=== PATIENT | female | born 1950 | race Caucasian/White ===

== ENCOUNTER → 2017-05-03 | Day surgery (SDC) | payer BC ==
[~2017-05-03] MED LIST: DILT180C64 PO; IV RINGERS,LACTATED 1000ML 1,000 ML IV SCH; MULT1TAB52 PO; PROPOFOL 60 ML IV ONE
[2017-05-03 10:35] VITALS: BP 129/71
--- NOTE | 2017-05-04 14:30 | PATHOLOGY ---
PATHOLOGY REPORT * * * * * * * * FINAL DIAGNOSIS: A. Small bowel biopsy: - No significant pathologic abnormalities. B. Gastric biopsy, antrum: - Congestion and slight chronic inflammation. C. Esophageal biopsy, distal esophagus: - Segments of hyperplastic squamous esophageal mucosa and esophagogastric mucosa showing active chronic inflammation, consistent with reflux esophagitis. D. Terminal ileum biopsy: - Segments of small intestine mucosa with focal contiguous colonic mucosa showing no significant pathologic abnormalities, with mucosal associated lymphoid tissue. E. Colonic mucosa, right colon biopsies: - Collagenous colitis. F. Colonic mucosa, left colon biopsies: - Collagenous colitis. COMMENT: Sections of the small bowel biopsy reveal segments of duodenal and small intestine mucosa. Where best oriented, the mucosal villi appear normal. There are no sprue-like changes or significant inflammatory changes. Sections of the gastric biopsy reveal gastric body and antral/body transition mucosa showing congestion and slight chronic inflammation. An immunoperoxidase stain for Helicobacter is obtained. No Helicobacter organisms are identified. Sections of the distal esophageal biopsy reveal segments of hyperplastic squamous esophageal mucosa and esophagogastric mucosa showing mild to moderate active chronic inflammation. The findings are consistent with reflux. There is no evidence of Teresa's change, dysplasia, or malignancy. Sections of the terminal ileum biopsy reveal segments of small intestine mucosa with focal contiguous colonic mucosa showing mucosal associated lymphoid tissue. There are no sprue-like changes or significant inflammatory changes. Sections of the right colon and left colon biopsies show a mild chronic active colitis without crypt architectural distortion. There is collagen deposited around the absorptive capillary complex beneath the surface epithelium. The findings are compatible with collagenous colitis. The findings are better developed in the left colon biopsies. (JPM:; d/t: 05/04/17) Special Stain Performed: Immunoperoxidase stain for Helicobacter (B1) REPORT ELECTRONICALLY SIGNED BY: Reese Banerjee M.D. DATE/TIME: 05/04/2017 14:29 * * * * * * * * GROSS PATHOLOGY: A. Received in formalin labeled "Chata Thomas, small bowel biopsy," are 4 segments of mcgill soft tissue measuring from 0.2 to 0.3 cm in maximum dimension. The specimen is submitted entirely in cassette A1. B. Received in formalin labeled "William Chata, gastric antrum" are 2 segments of mcgill soft tissue measuring 0.3 and 0.4 cm in maximum dimension. The specimen is submitted entirely in cassette B1. C. Received in formalin labeled "distal esophagus," are three segments of mcgill soft tissue measuring from 0.1 to 0.2 cm in maximum dimension. The specimen is submitted entirely in cassette C1. D. Received in formalin labeled "terminal ileum," is a segment of mcgill soft tissue measuring 0.5 cm in maximum dimension. The specimen is submitted entirely in cassette D1. E. Received in formalin labeled "right colon," are four segments of mcgill soft tissue measuring from 0.1 to 0.3 cm in maximum dimension. The specimen is submitted entirely in cassette E1. F. Received in formalin labeled "left colon," are four segments of mcgill soft tissue measuring from 0.2 to 0.3 cm in maximum dimension. The specimen is submitted entirely in cassette F1. (JPM; 05/03/17) INITIAL CPT CODE(S): A; 73866 B; 21969, 48721 C; 21050 D; 70816 E; 16477 F; 07447 Professional services performed by [facility] [place] [address] Technical services performed by [facility] at [address] [place] [address] [address] [address]. SPECIMEN(S) RECEIVED: A.Small bowel biopsy B.Gastric antrum C.Distal esophagus D.Terminal ileum E.Right colon F.Left colon CLINICAL HISTORY: GERD, diarrhea; esophagitis PATIENT: CHATA THOMAS /AGE: 806/28/1950 (Age: 66) PATIENT #: [id number] ALT CASE #: SPECIMEN COLLECTION DATE: 05/03/2017 SPECIMEN RECEIVED DATE: 05/03/2017 [facility] - [address] [place] [address] - PHONE: [phone] * * * END OF REPORT * * *
== END | disposition home or self-care (01) ==
LOC: ENDOS 08:01
PROVIDERS: ATTEND Internal Medicine Gastroenterology
DX: K64.0 First degree hemorrhoids (principal); K21.0 Gastro-esophageal reflux disease with esophagitis; K44.9 Diaphragmatic hernia without obstruction or gangrene; F41.9 Anxiety disorder, unspecified; I10 Essential (primary) hypertension; F17.200 Nicotine dependence, unspecified, uncomplicated; Z85.3 Personal history of malignant neoplasm of breast; Z83.3 Family history of diabetes mellitus; Z82.49 Family history of ischemic heart disease and other diseases of the circulatory system; Z72.89 Other problems related to lifestyle; Z98.51 Tubal ligation status; Z88.2 Allergy status to sulfonamides
CPT/HCPCS: 43239; 45380; 88305; 88342; J2704